=== PATIENT | male | born 1990 | race Caucasian/White ===

== ENCOUNTER → 2016-09-02 | Outpatient (REF) | LOC: WSOH 12:33 → WSPT 13:15 | DX: Z02.89 Encounter for other administrative examinations (principal) ==

== ENCOUNTER → 2017-08-14 | Outpatient (CLI) | payer OTHER | LOC: COL.LAB 00:27 | DX: Z02.83 Encounter for blood-alcohol and blood-drug test (principal) ==

== ENCOUNTER 2018-10-26 12:04 | Emergency (ER) | payer MEDICARE, MEDICAID ==
[~2018-10-26] VITALS: Ht 193 cm; Wt 77.7 kg
[2018-10-26 12:15] VITALS: TEMP 97
[2018-10-26 12:53] LABS: ACETAMINOPHEN < 10 ug/mL (10-30); ALANINE AMINOTRANSFERASE 13 U/L (21-72); ALBUMIN 4.4 gm/dL (3.5-5.0); ALCOHOL(ethanol),MEDICAL 152 mg/dL; ALKALINE PHOSPHATASE 86 U/L (50-136); ANION GAP 13 mmol/L (7-16); AST,SGOT 20 U/L (15-37); BILIRUBIN,TOTAL 0.4 mg/dL (0.0-1.0); BLOOD UREA NITROGEN 9 mg/dL (9-20); CALCIUM 9.2 mg/dL (8.4-10.2); CARBON DIOXIDE 23 mmol/L (22-30); CHLORIDE 104 mmol/L (98-107); GLUCOSE 85 mg/dL (74-106); POTASSIUM 3.8 mmol/L (3.4-5.0); SALICYLATE < 1.0 mg/dL; SODIUM 140 mmol/L (137-145); TOTAL PROTEIN 7.4 gm/dL (6.4-8.2)
[2018-10-26 12:58] LABS: BASO % 0.4 % (0.0-2.0); EOS # 0.1 (0.0-0.7); EOS % 0.6 % (0-4.0); GRAN # 6.8 (1.4-6.5); GRAN % 70.7 % (42.2-75.2); HEMOGLOBIN 11.7 g/dl (13.5-18.0); LYMPH % 20.8 % (20.0-51.0); MEAN CELL VOLUME 94 fl (80.0-100.0); MEAN CORPUSCULAR HEMOGLOBIN 30 pg (27.0-31.0); MEAN CORPUSCULAR HGB CONC 32 g/dl (33.0-37.0); MEAN PLATELET VOLUME 8.9 fl (7.4-10.4); MONO # 0.7 (0.1-0.6); MONO % 7.2 % (1.7-9.3); PLATELET COUNT 322 K/mm3 (130-400); RED BLOOD COUNT 3.93 M/mm3 (4.20-5.60); REDCELL DISTRIBUTION WIDTH-CV 11.2 % (11.5-14.5)
[2018-10-26 13:12] LABS: HEMATOCRIT 36.9 % (42.0-52.0)
[2018-10-26] MEDS ORDERED: ATIVAN 1MG T1 MG/TAB (13:34)
[2018-10-26 13:46] LABS: TRICYCLIC ANTIDEPRESS URINE NEGATIVE
[2018-10-27 20:38] VITALS: BP 102/57; PULSE 87
== END 2018-10-27 20:38 ==
LOC: COL.ER 12:04
PROVIDERS: Emergency Medicine
DX: F32.9 Major depressive disorder, single episode, unspecified (principal); R45.851 Suicidal ideations; F20.9 Schizophrenia, unspecified; F17.210 Nicotine dependence, cigarettes, uncomplicated; F41.9 Anxiety disorder, unspecified

== ENCOUNTER 2018-11-19 22:08 | Emergency (ER) | payer MEDICARE, MEDICAID ==
[~2018-11-19] VITALS: Ht 193 cm; Wt 70.5 kg
[~2018-11-19 22:08] MED LIST: ATIVAN 1MG T1 MG/TAB
[2018-11-19 22:14] VITALS: TEMP 98.5
[2018-11-20 00:04] VITALS: BP 135/86; PULSE 80
== END 2018-11-20 00:04 | disposition home or self-care (01) ==
LOC: COL.ER 22:08
DX: F20.0 Paranoid schizophrenia (principal); F17.210 Nicotine dependence, cigarettes, uncomplicated

== ENCOUNTER 2018-11-20 01:28 | Emergency (ER) | payer MEDICARE, MEDICAID ==
[~2018-11-20] VITALS: Ht 193 cm; Wt 68.2 kg
[2018-11-20 02:20] LABS: COLLECTION METHOD CLEAN CATCH
[2018-11-20 02:28] LABS: MUCOUS Present /lpf; PH 5 (5-8); SQUAMOUS EPITHELIAL None Seen /hpf; URINE APPEARANCE Clear; URINE BACTERIA None Seen /hpf; URINE BILIRUBIN Negative (NEGATIVE); URINE BLOOD Negative (NEGATIVE); URINE COLOR Yellow; URINE GLUCOSE Negative (NEGATIVE); URINE KETONE Negative (NEGATIVE); URINE LEUKOCYTE ESTERASE Negative (NEGATIVE); URINE NITRATE Negative (NEGATIVE); URINE PROTEIN(semi-quant) Negative (NEGATIVE); URINE RBC 0-2 /hpf; URINE UROBILINOGEN Negative (NEGATIVE)
[2018-11-20 02:36] LABS: TRICYCLIC ANTIDEPRESS URINE NEGATIVE
[2018-11-20 02:39] LABS: BASO % 0.3 % (0.0-2.0); EOS # 0.1 (0.0-0.7); EOS % 1.2 % (0-4.0); GRAN # 5.2 (1.4-6.5); GRAN % 60.5 % (42.2-75.2); HEMATOCRIT 37.9 % (42.0-52.0); HEMOGLOBIN 12.1 g/dl (13.5-18.0); LYMPH # 2.7 (1.2-3.4); LYMPH % 31.3 % (20.0-51.0); MEAN CELL VOLUME 93 fl (80.0-100.0); MEAN CORPUSCULAR HEMOGLOBIN 30 pg (27.0-31.0); MEAN CORPUSCULAR HGB CONC 32 g/dl (33.0-37.0); MEAN PLATELET VOLUME 9.2 fl (7.4-10.4); MONO # 0.6 (0.1-0.6); MONO % 6.6 % (1.7-9.3); PLATELET COUNT 316 K/mm3 (130-400); RED BLOOD COUNT 4.08 M/mm3 (4.20-5.60)
[2018-11-20 02:57] LABS: ACETAMINOPHEN < 10 ug/mL (10-30); ALANINE AMINOTRANSFERASE 12 U/L (21-72); ALBUMIN 4.4 gm/dL (3.5-5.0); ALKALINE PHOSPHATASE 85 U/L (50-136); ANION GAP 12 mmol/L (7-16); AST,SGOT 19 U/L (15-37); BILIRUBIN,TOTAL 0.5 mg/dL (0.0-1.0); BLOOD UREA NITROGEN 14 mg/dL (9-20); CALCIUM 9.4 mg/dL (8.4-10.2); CARBON DIOXIDE 26 mmol/L (22-30); CHLORIDE 103 mmol/L (98-107); CREATININE, serum 0.74 (0.66-1.25); GLUCOSE 110 mg/dL (74-106); POTASSIUM 3.4 mmol/L (3.4-5.0); SALICYLATE < 1.0 mg/dL; SODIUM 141 mmol/L (137-145); TOTAL PROTEIN 7.2 gm/dL (6.4-8.2)
[2018-11-20 02:58] LABS: ALCOHOL(ethanol),MEDICAL < 10 mg/dL
[2018-11-20 04:11] VITALS: BP 148/81; PULSE 80
== END 2018-11-20 04:56 | disposition home or self-care (01) ==
LOC: COL.ER 01:28
PROVIDERS: Emergency Medicine
DX: F20.0 Paranoid schizophrenia (principal); F17.210 Nicotine dependence, cigarettes, uncomplicated; F32.9 Major depressive disorder, single episode, unspecified

== ENCOUNTER 2020-04-19 13:09 | Emergency (ER) | payer MEDICARE ==
[~2020-04-19] VITALS: Ht 193 cm; Wt 77.3 kg
[2020-04-19 13:28] VITALS: BP 139/85; PULSE 100; TEMP 98.8
[2020-04-19] MEDS ORDERED: ZYPREXA10 MG PO (14:51)
== END 2020-04-19 14:52 | disposition home or self-care (01) ==
LOC: COL.ER 13:09
DX: Z76.0 Encounter for issue of repeat prescription (principal); F17.200 Nicotine dependence, unspecified, uncomplicated; Z79.899 Other long term (current) drug therapy

== ENCOUNTER 2020-08-01 07:41 | Emergency (ER) | payer MEDICARE, MEDICAID ==
[~2020-08-01] VITALS: Ht 193 cm; Wt 77.3 kg
[~2020-08-01 07:41] MED LIST changes: +ZYPREXA10 MG PO
[2020-08-01 07:48] VITALS: BP 116/79; TEMP 97.6
[2020-08-01 08:54] LABS: COLLECTION METHOD CLEAN CATCH
[2020-08-01 09:06] LABS: PH 7 (5-8); SQUAMOUS EPITHELIAL None Seen /hpf; URINE APPEARANCE Clear; URINE BACTERIA None Seen /hpf; URINE BILIRUBIN Negative (NEGATIVE); URINE BLOOD Negative (NEGATIVE); URINE COLOR Colorless; URINE GLUCOSE Negative (NEGATIVE); URINE KETONE Negative (NEGATIVE); URINE LEUKOCYTE ESTERASE Negative (NEGATIVE); URINE NITRATE Negative (NEGATIVE); URINE PROTEIN(semi-quant) Negative (NEGATIVE); URINE RBC None Seen /hpf; URINE UROBILINOGEN Negative (NEGATIVE)
[2020-08-01] MEDS ORDERED: MYCELEX10 MG/TAB MM ×3 (09:20→09:36)
[2020-08-01 09:47] VITALS: PULSE 95
== END 2020-08-01 09:47 | disposition home or self-care (01) ==
LOC: COL.ER 07:41
PROVIDERS: Family Medicine
DX: F20.0 Paranoid schizophrenia (principal); B37.0 Candidal stomatitis; F17.210 Nicotine dependence, cigarettes, uncomplicated; Z86.59 Personal history of other mental and behavioral disorders

== ENCOUNTER 2020-08-07 05:26 | Emergency (ER) | payer MEDICARE, MEDICAID ==
[~2020-08-07] VITALS: Ht 193 cm; Wt 84.1 kg
[~2020-08-07 05:26] MED LIST changes: +MYCELEX10 MG/TAB MM
[2020-08-07 05:30] VITALS: BP 121/81; TEMP 98
[2020-08-07] MEDS ORDERED: CLEOCIN HCL300 MG PO (05:44)
[2020-08-07] MEDS ORDERED: A & D OINT TUBE60 GM TOP (06:43)
[2020-08-07 06:48] VITALS: PULSE 75
== END 2020-08-07 06:48 | disposition home or self-care (01) ==
LOC: COL.ER 05:26
DX: K14.8 Other diseases of tongue (principal); F20.9 Schizophrenia, unspecified

== ENCOUNTER 2020-08-09 12:18 | Emergency (ER) | payer MEDICARE, MEDICAID ==
[~2020-08-09 12:18] MED LIST changes: +A & D OINT TUBE60 GM TOP; +CLEOCIN HCL300 MG PO
[2020-08-09 12:38] VITALS: TEMP 98.8
[2020-08-09 14:29] LABS: COLLECTION METHOD CLEAN CATCH
[2020-08-09 14:39] LABS: PH 8 (5-8); SQUAMOUS EPITHELIAL None Seen /hpf; URINE APPEARANCE Clear; URINE BACTERIA None Seen /hpf; URINE BILIRUBIN Negative (NEGATIVE); URINE BLOOD Negative (NEGATIVE); URINE COLOR Yellow; URINE GLUCOSE Negative (NEGATIVE); URINE KETONE Negative (NEGATIVE); URINE LEUKOCYTE ESTERASE Negative (NEGATIVE); URINE NITRATE Negative (NEGATIVE); URINE PROTEIN(semi-quant) Negative (NEGATIVE); URINE RBC 0-2 /hpf; URINE UROBILINOGEN Negative (NEGATIVE)
[2020-08-09 14:43] LABS: BASO % 0.4 % (0.0-2.0); EOS # 0.1 (0.0-0.7); EOS % 1.7 % (0-4.0); GRAN # 5.5 (1.4-6.5); HEMATOCRIT 38.5 % (42.0-52.0); HEMOGLOBIN 12.5 g/dl (13.5-18.0); LYMPH # 1.6 (1.2-3.4); LYMPH % 20.6 % (20.0-51.0); MEAN CELL VOLUME 94 fl (80.0-100.0); MEAN CORPUSCULAR HEMOGLOBIN 31 pg (27.0-31.0); MEAN CORPUSCULAR HGB CONC 33 g/dl (33.0-37.0); MONO # 0.5 (0.1-0.6); MONO % 5.9 % (1.7-9.3); PLATELET COUNT 306 K/mm3 (130-400); REDCELL DISTRIBUTION WIDTH-CV 11.2 % (11.5-14.5)
[2020-08-09 15:00] LABS: ALANINE AMINOTRANSFERASE 90 U/L (4-49); ALBUMIN 4.5 gm/dL (3.5-5.0); ALKALINE PHOSPHATASE 83 U/L (50-136); ANION GAP 7 mmol/L (7-16); AST,SGOT 59 U/L (15-37); BILIRUBIN,TOTAL 0.5 mg/dL (0.0-1.0); BLOOD UREA NITROGEN 7 mg/dL (9-20); CALCIUM 9.4 mg/dL (8.4-10.2); CARBON DIOXIDE 26 mmol/L (22-30); CHLORIDE 103 mmol/L (98-107); CREATININE, serum 0.84 (0.66-1.25); GLUCOSE 103 mg/dL (74-106); SODIUM 136 mmol/L (137-145); TOTAL PROTEIN 7.5 gm/dL (6.4-8.2)
[2020-08-09 15:05] LABS: ACETAMINOPHEN < 10 ug/mL (10-30); ALCOHOL(ethanol),MEDICAL < 10 mg/dL; SALICYLATE < 1.0 mg/dL
[2020-08-09 15:08] LABS: TRICYCLIC ANTIDEPRESS URINE NEGATIVE
[2020-08-10] MEDS ORDERED: ZOLOFT 50MG50 MG PO (12:54)
[2020-08-10] MEDS ORDERED: OLANZAPINE PO (12:54)
[2020-08-10] MEDS ORDERED: NYSTATIN PO (12:56)
[2020-08-10] MEDS ORDERED: BUSPIRONE PO (12:56)
[2020-08-11] MEDS ORDERED: ZYPREXA10 MG PO (09:34)
[2020-08-11] MEDS ORDERED: XANAX 1MG1 MG PO (09:34)
[2020-08-11 10:00] VITALS: BP 129/72; PULSE 99
== END 2020-08-11 10:05 | disposition home or self-care (01) ==
LOC: COL.ER 12:18
PROVIDERS: Nurse Practitioner Primary Care
DX: F20.0 Paranoid schizophrenia (principal); F17.290 Nicotine dependence, other tobacco product, uncomplicated; Z20.822 Contact with and (suspected) exposure to COVID-19

== ENCOUNTER 2020-08-20 19:09 | Emergency (ER) | payer MEDICARE, MEDICAID ==
[~2020-08-20] VITALS: Ht 193 cm; Wt 77.3 kg
[~2020-08-20 19:09] MED LIST changes: +BUSPIRONE PO; +NYSTATIN PO; +OLANZAPINE PO; +XANAX 1MG1 MG PO; +ZOLOFT 50MG50 MG PO
[2020-08-20 19:15] VITALS: BP 120/75; TEMP 97.6
[2020-08-20] MEDS ORDERED: MYCELEX10 MG/TAB MM ×2 (19:42)
[2020-08-20] MEDS ORDERED: ATARAX 25MG25 MG/TAB PO (19:42)
[2020-08-20] MEDS ORDERED: PERIDEX (CHLOR480 ML MM (19:48)
[2020-08-20 19:59] VITALS: PULSE 102
== END 2020-08-20 19:59 | disposition home or self-care (01) ==
LOC: COL.ER 19:09
DX: K08.89 Other specified disorders of teeth and supporting structures (principal); F41.9 Anxiety disorder, unspecified; F20.0 Paranoid schizophrenia

== ENCOUNTER 2020-09-04 11:51 | Emergency (ER) | payer MEDICARE, MEDICAID ==
[~2020-09-04] VITALS: Ht 193 cm; Wt 77.3 kg
[~2020-09-04 11:51] MED LIST changes: +ATARAX 25MG25 MG/TAB PO; +PERIDEX (CHLOR480 ML MM
[2020-09-04 12:08] VITALS: BP 126/74; PULSE 95; TEMP 98.4
== END 2020-09-04 12:57 | disposition left against medical advice (07) ==
LOC: COL.ER 11:51
DX: F41.9 Anxiety disorder, unspecified (principal); K08.9 Disorder of teeth and supporting structures, unspecified; F20.0 Paranoid schizophrenia; F17.210 Nicotine dependence, cigarettes, uncomplicated

== ENCOUNTER 2020-09-07 16:18 | Emergency (ER) | payer MEDICARE, MEDICAID ==
[~2020-09-07] VITALS: Ht 193 cm; Wt 80.0 kg
[2020-09-07 16:28] VITALS: TEMP 98.3
[2020-09-07 17:37] LABS: BASO % 0.4 % (0.0-2.0); EOS # 0.1 (0.0-0.7); EOS % 0.7 % (0-4.0); GRAN # 5.3 (1.4-6.5); GRAN % 69.6 % (42.2-75.2); HEMATOCRIT 44.5 % (42.0-52.0); HEMOGLOBIN 13.9 g/dl (13.5-18.0); LYMPH # 1.6 (1.2-3.4); LYMPH % 21.5 % (20.0-51.0); MEAN CELL VOLUME 95 fl (80.0-100.0); MEAN CORPUSCULAR HEMOGLOBIN 30 pg (27.0-31.0); MEAN CORPUSCULAR HGB CONC 31 g/dl (33.0-37.0); MEAN PLATELET VOLUME 8.8 fl (7.4-10.4); MONO # 0.6 (0.1-0.6); MONO % 7.5 % (1.7-9.3); PLATELET COUNT 335 K/mm3 (130-400); REDCELL DISTRIBUTION WIDTH-CV 10.9 % (11.5-14.5)
[2020-09-07 17:55] LABS: ALANINE AMINOTRANSFERASE 32 U/L (4-49); ALKALINE PHOSPHATASE 87 U/L (50-136); ANION GAP 13 mmol/L (7-16); AST,SGOT 51 U/L (15-37); BILIRUBIN,TOTAL 1.1 mg/dL (0.0-1.0); BLOOD UREA NITROGEN 10 mg/dL (9-20); CALCIUM 9.8 mg/dL (8.4-10.2); CARBON DIOXIDE 22 mmol/L (22-30); CHLORIDE 98 mmol/L (98-107); CREATININE, serum 0.74 (0.66-1.25); GLUCOSE 97 mg/dL (74-106); SODIUM 133 mmol/L (137-145); TOTAL PROTEIN 8.6 gm/dL (6.4-8.2)
[2020-09-07 18:00] LABS: ACETAMINOPHEN < 10 ug/mL (10-30); ALCOHOL(ethanol),MEDICAL < 10 mg/dL; SALICYLATE < 1.0 mg/dL
[2020-09-07 19:11] LABS: COLLECTION METHOD CLEAN CATCH
[2020-09-07 19:16] LABS: PH 6 (5-8); SQUAMOUS EPITHELIAL None Seen /hpf; URINE APPEARANCE Clear; URINE BACTERIA None Seen /hpf; URINE BILIRUBIN Negative (NEGATIVE); URINE BLOOD Negative (NEGATIVE); URINE COLOR Straw; URINE GLUCOSE Negative (NEGATIVE); URINE KETONE 1+ (NEGATIVE); URINE LEUKOCYTE ESTERASE Negative (NEGATIVE); URINE NITRATE Negative (NEGATIVE); URINE PROTEIN(semi-quant) Negative (NEGATIVE); URINE RBC None Seen /hpf; URINE UROBILINOGEN Negative (NEGATIVE)
[2020-09-07 19:26] LABS: TRICYCLIC ANTIDEPRESS URINE NEGATIVE
[2020-09-07 23:19] VITALS: BP 162/82; PULSE 115
== END 2020-09-07 23:21 ==
LOC: COL.ER 16:18
PROVIDERS: Nurse Practitioner
DX: F41.9 Anxiety disorder, unspecified (principal); F20.0 Paranoid schizophrenia; F17.210 Nicotine dependence, cigarettes, uncomplicated; Z20.822 Contact with and (suspected) exposure to COVID-19

== ENCOUNTER 2020-09-13 13:34 | Emergency (ER) | payer MEDICARE, MEDICAID ==
[~2020-09-13] VITALS: Ht 193 cm; Wt 77.3 kg
[2020-09-13 13:48] VITALS: BP 149/85; PULSE 90; TEMP 97
== END 2020-09-13 14:15 | disposition left against medical advice (07) ==
LOC: COL.ER 13:34
DX: K13.29 Other disturbances of oral epithelium, including tongue (principal); F41.9 Anxiety disorder, unspecified; F20.0 Paranoid schizophrenia; F17.210 Nicotine dependence, cigarettes, uncomplicated

== ENCOUNTER 2020-10-10 08:25 | Emergency (ER) | payer MEDICARE, MEDICAID ==
[~2020-10-10] VITALS: Ht 193 cm; Wt 77.3 kg
[2020-10-10 08:53] VITALS: BP 116/74; PULSE 103; TEMP 98.3
== END 2020-10-10 09:29 | disposition left against medical advice (07) ==
LOC: COL.ER 08:25
DX: K14.8 Other diseases of tongue (principal); F20.0 Paranoid schizophrenia; F41.9 Anxiety disorder, unspecified; F17.210 Nicotine dependence, cigarettes, uncomplicated; Z20.822 Contact with and (suspected) exposure to COVID-19; Z79.899 Other long term (current) drug therapy

== ENCOUNTER 2021-03-23 14:16 | Emergency (ER) | payer MEDICARE ==
[~2021-03-23] VITALS: Ht 193 cm; Wt 75.0 kg
[2021-03-23 14:41] VITALS: BP 123/74; PULSE 100; TEMP 99
== END 2021-03-23 16:04 | disposition left against medical advice (07) ==
LOC: COL.ER 14:16
DX: F20.0 Paranoid schizophrenia (principal); F17.200 Nicotine dependence, unspecified, uncomplicated; Z79.899 Other long term (current) drug therapy